=== PATIENT | female | born 1995 | race Caucasian/White ===

== ENCOUNTER 2023-03-05 07:03 | Emergency (ER) | payer OTHER ==
--- OUTSIDE RECORDS SUMMARY | 2023-03-05 07:06 | XMS REPORT | Continuity of Care Document ---
:1995 Author Organization [facility] t Address [address] [place] [address] Care Team Providers Name Role Phone GC_SWHAARLYNC_Black_D Attending Clinician Unavailable Olivia Morse Attending Clinician Unavailable Ely Chappell Attending Clinician Unavailable OLI_PRANAV_Black_Melody Attending Clinician Unavailable Thelma Bethea MD Attending Clinician THELMA BETHEA Attending Clinician Unavailable Roman Montesinos MD Attending Clinician Doctor Unassigned, [place] Attending Clinician Unavailable OLI_SWHAARLYNC_Black_D Admitting Clinician Unavailable Ely Chappell Admitting Clinician Unavailable GC_PRANAV_Black_D Admitting Clinician Unavailable Payers Payer Name Policy Type Policy Number Effective Date Expiration Date Radha pineda AET[employer] - CHOICE [id number] 2019 (POS II) 00:00:00 AETNA 53 [id number] [facility] Problems Condition Condition Condition Status Onset Resolution Last Treating Co mments Source Name Details Category Date Date Treatment Clinician Date Contracept Contracept Disease Active U nivers cody c[place] 7- [place] Anxiety Anxiety Disease Active Univers and [place] 10-09 [place] Encounter Encounter Disease Active Uni vers for IUD for IUD 10-09 ity of removal removal 00:00: [address] [id number] Vaginal Problem Active Commo n discharge [facility] [id number] RUQ pain Problem Active Comm on [facility] Hypothyroi Hypothyroi Problem Active P rivia dism dism Medical Allergies, Adverse Reactions, Alerts Allergy Allergy Status Severity Reaction(s) Onset Inactive Treating Comm ents Source Name Type Date Date Clinician No Known DA Active U 2022-04 [facility] Allergie 0-17 [facility] s 00:[facility]: Hosp[facility] 00 l [facility] No Known DA Active U 2022-04 [facility] Allergie 0-08 Woman's s 00:00: Hospita 00 [facility] NO KNOWN Drug Active Univers ALLERGIE Class ity of S [facility] Social History Social Habit Start Date Stop Date Quantity Comments Source History of [facility] - Tobacco Use [facility] Sex Assigned At [facility] karine - [facility] Exposure to Not sure [facility] SARS-CoV-2 [facility] (event) Branch Alcohol intake 2019-01-20 2019-01-20 Current University of 00:00:00 00:00:00 non-drinker of [facility] alcohol [place] (finding) Tobacco use and 2019-01-20 2019-01-20 Never used Universit y of exposure 00:00:00 00:00:00 [facility] Smoking Status Start Date Stop Date Source Never Smoker [facility] Medications Ordered Filled Start Stop Current Ordering Indication Dosage Frequency Signature Comments Components Source Medication Medication Date Date Medication? Clinician (SIG) Name Name ciprofloxac 2020- No [id number] 4[drp] Place 4 Univers in-dexameth 11-26 25605 Drops in it y of asone 00:00: 04:59 right ear [place] (CIPRODEX) 00 :00 2 (two) Medica l 0.3-0.1 % times Branch otic drops daily for 7 days. traMADol 50 2019- 2020- No 4647 50mg Take 1 Uni vers mg tablet 11-26 tablet by ity of 00:00: 04:59 mouth [place] 00 :00 every 6 Medical (six) Branch hours as needed for Pain (scale 4-6) for up to 7 days. Indication s: acute pain ketorolac 2019- No 30mg 30 mg, Unive rs (TORADOL) 06-02 Slow IV ity of injection 11:45: 10:47 Push, [place] 30 mg 00 :00 ONCE, 1 Medical dose, Fri Branch 06/02/19 at 0545, Routine
fast food crew member approving Restricted medication : ROMAN MONTESINOS metoclopram 2019- No 10mg 10 mg, Uni vers bennie HCl 06-02 Slow IV ity of (REGLAN) 11:45: 10:45 Push, [place] injection 00 :00 ONCE, 1 Medical 10 mg dose, Fri Branch 06/02/19 at 0545, MICHEL NaCl 0.9% 2019- No 1000mL at 999 Uni vers (NS) bolus 06-02 mL/hr, ity of infusion 10:45: 11:29 1,000 mL, [place] as 1,000 mL 00 :00 IV Medical Infusion, Branch ONCE, 1 dose, 06/02/19 at 0445, MICHEL ibuprofen Yes [id number] 600mg Take 1 Univers 600 mg 4-04 tablet by ity of tablet 00:00: mouth [place] 00 every 6 Medical (six) Branch hours as needed for Pain (scale 4-6). ibuprofen Yes [id number] 600mg Take 1 Univers 600 mg 4-04 tablet by ity of tablet 00:00: mouth [place] 00 every 6 Medical (six) Branch hours as needed for Pain (scale 4-6). ibuprofen Yes [id number] 600mg Take 1 Univers 600 mg 4-04 tablet by ity of tablet 00:00: mouth [place] 00 every 6 Medical (six) Branch hours as needed for Pain (scale 4-6). Flagyl 500 Flagyl 500 2017- No 1{table BID Flagyl 500 MG MG 7-09 t} MG 00:00: 00 norgestimat Yes [id number] 1{tbl} Take 1 Univers e-ethinyl 7-21 tablet by ity o f estradiol 00:00: mouth [place] (ORTHO 00 daily. Medical TRI-CYCLEN, Branch 28,) 0.18/0.215/ 0.25 mg-35 mcg (28) tablet norgestimat Yes [id number] 1{tbl} Take 1 Univers e-ethinyl 7-21 tablet by ity o f estradiol 00:00: mouth [place] (ORTHO 00 daily. [place] [address],) 0.18/0.215/ 0.25 mg-35 mcg (28) tablet norgestimat Yes [id number] 1{tbl} Take 1 Univers e-ethinyl 7-21 tablet by ity o f estradiol 00:00: mouth [place] (ORTHO 00 daily. [place] [address],) 0.18/0.215/ 0.25 mg-35 mcg (28) tablet norgestimat Yes [id number] 1{tbl} Take 1 Univers e-ethinyl 7-21 tablet by ity o f estradiol 00:00: mouth [place] (ORTHO 00 daily. [place] [address],) 0.18/0.215/ 0.25 mg-35 mcg (28) tablet norgestimat Yes [id number] 1{tbl} Take 1 Univers e-ethinyl 7-21 tablet by ity o f estradiol 00:00: mouth [place] (ORTHO 00 daily. [place] [address],) 0.18/0.215/ 0.25 mg-35 mcg (28) tablet norgestimat Yes [id number] 1{tbl} Take 1 Univers e-ethinyl 7-21 tablet by ity o f estradiol 00:00: mouth [place] (ORTHO 00 daily. [place] [address],) 0.18/0.215/ 0.25 mg-35 mcg (28) tablet levothyroxi levothyroxi No levothyrox [facility] ne 175 mcg ne 175 mcg ine 175 Medical tablet TAKE tablet TAKE mcg tablet 1 TABLET BY 1 TABLET BY TAKE 1 MOUTH DAILY MOUTH DAILY TABLET BY IN THE IN THE MOUTH MORNING ON MORNING ON DAILY IN AN EMPTY AN EMPTY THE STOMACH. STOMACH. MORNING ON WAIT 30 WAIT 30 AN EMPTY MINUTES MINUTES STOMACH. BEFORE BEFORE WAIT 30 EATING OR EATING OR MINUTES DRINKING DRINKING BEFORE EATING OR DRINKING ondansetron ondansetron No ondansetro [facility] 8 mg 8 mg n 8 mg Medical disintegrat disintegrat disintegra ing tablet ing tablet ting DISSOLVE 1 DISSOLVE 1 tablet TABLET ON TABLET ON DISSOLVE 1 THE TONGUE THE TONGUE TABLET ON THREE TIMES THREE TIMES THE TONGUE DAILY DAILY THREE NEEDED FOR NEEDED FOR TIMES NAUSEA NAUSEA DAILY NEEDED FOR NAUSEA Zofran 8 mg Zofran 8 mg No 1 Q8H Zofran 8 [facility] tablet Take tablet Take mg tablet Medical 1 tablet 1 tablet Take 1 every 8 every 8 tablet hours by hours by every 8 oral route oral route hours by as needed. as needed. oral route as needed. amoxicillin amoxicillin No amoxicilli [facility] 875 mg 875 mg n 875 mg Medical tablet TAKE tablet TAKE tablet 1 TABLET BY 1 TABLET BY TAKE 1 MOUTH TWICE MOUTH TWICE TABLET BY DAILY FOR DAILY FOR MOUTH 10 DAYS 10 DAYS TWICE DAILY FOR 10 DAYS benzonatate benzonatate No benzonatat [facility] 200 mg 200 mg e 200 mg Medical capsule capsule capsule TAKE 1 TAKE 1 TAKE 1 CAPSULE BY CAPSULE BY CAPSULE BY MOUTH THREE MOUTH THREE MOUTH TIMES DAILY TIMES DAILY THREE NEEDED NEEDED TIMES FOR COUGH FOR COUGH DAILY NEEDED FOR COUGH levothyroxi levothyroxi No levothyrox [facility] ne 175 mcg ne 175 mcg ine 175 Medical tablet TAKE tablet TAKE mcg tablet 1 TABLET BY 1 TABLET BY TAKE 1 MOUTH DAILY MOUTH DAILY TABLET BY IN THE IN THE MOUTH MORNING ON MORNING ON DAILY IN AN EMPTY AN EMPTY THE STOMACH. STOMACH. MORNING ON WAIT 30 WAIT 30 AN EMPTY MINUTES MINUTES STOMACH. BEFORE BEFORE WAIT 30 EATING OR EATING OR MINUTES DRINKING DRINKING BEFORE EATING OR DRINKING ondansetron ondansetron No ondansetro [facility] 8 mg 8 mg n 8 mg Medical disintegrat disintegrat disintegra ing tablet ing tablet ting DISSOLVE 1 DISSOLVE 1 tablet TABLET ON TABLET ON DISSOLVE 1 THE TONGUE THE TONGUE TABLET ON THREE TIMES THREE TIMES THE TONGUE DAILY DAILY THREE NEEDED FOR NEEDED FOR TIMES NAUSEA NAUSEA DAILY NEEDED FOR NAUSEA Zofran 8 mg Zofran 8 mg No 1 Q8H Zofran 8 [facility] tablet Take tablet Take mg tablet Medical 1 tablet 1 tablet Take 1 every 8 every 8 tablet hours by hours by every 8 oral route oral route hours by as needed. as needed. oral route as needed. Levothyroxi Levothyroxi No QD Levothyrox ne Sodium ne Sodium ine Sodium 175 MCG 175 MCG 175 MCG Mirena (52 Mirena (52 No Mirena (52 MG) 20 MG) 20 MG) 20 MCG/24HR MCG/24HR MCG/24HR Vital Signs Vital Name Observation Time Observation Value Comments Source BP Diastolic 2022-08-21 00:00:00 54 mm[Hg] Heena herzog BP Systolic 2022-08-21 00:00:00 102 mm[Hg] Heena herzog Body Weight 2022-08-21 00:00:00 222 [lb_av] Heena herzog BP Diastolic 2022-08-05 00:00:00 54 mm[Hg] Heena Barajas edical Height 2022-08-05 00:00:00 63 [in_i] Heena herzog BMI (Body Mass 2022-08-05 00:00:00 39.7 kg/m2 [facility] Index) BP Systolic 2022-08-05 00:00:00 106 mm[Hg] Heena herzog Body Weight 2022-08-05 00:00:00 224 [lb_av] Heena Barajas edical weight 2021-07-09 16:30:00 216.6 [lb_av] [facility] temperature 2021-07-09 16:30:00 98.6 [degF] Common [facility] bmi 2021-07-09 16:30:00 38.36 kg/m2 [facility] oximetry 2021-07-09 16:30:00 99 % [facility] respiratory rate 2021-07-09 16:30:00 16 /min Comm on [facility] blood pressure 2021-07-09 16:30:00 121 mm[Hg] Common [facility] - systolic [facility] blood pressure 2021-07-09 16:30:00 63 mm[Hg] Common [facility] - diastolic [facility] height 2021-07-09 16:30:00 63 [in_i] Common [facility] Systolic blood 2019-11-27 12:19:00 126 mm[Hg] Univer sity of pressure [facility] Diastolic blood 2019-11-27 12:19:00 72 mm[Hg] Unive rsity of pressure [facility] Heart rate 2019-11-27 12:19:00 94 /min Universi [facility] Body temperature 2019-11-27 12:19:00 37 Liss [facility] ersity [facility] Respiratory rate 2019-11-27 12:19:00 18 /min [facility] Body weight 2019-11-27 12:19:00 97.523 kg Universi ty [facility] BMI 2019-11-27 12:19:00 38.09 [facility]m2 [facility] Oxygen saturation in 2019-11-27 12:19:00 100 /min University of Arterial blood by [facility] Pulse oximetry Branch Systolic blood 2019-06-02 11:00:00 101 mm[Hg] Univer sity of pressure [facility] Diastolic blood 2019-06-02 11:00:00 70 mm[Hg] Unive rsity of [facility] Heart rate 2019-06-02 11:00:00 62 /min Universi ty [facility] Respiratory rate 2019-06-02 11:00:00 19 /min [facility] Oxygen saturation in 2019-06-02 11:00:00 97 /min [facility] Arterial blood by [facility] Pulse oximetry Branch Body temperature 2019-06-02 10:17:00 36.11 Liss [facility] Body height 2019-06-02 10:17:[address] [facility] Body weight 2019-06-02 10:17:00 94.348 kg [facility] BMI 2019-06-02 10:17:00 36.85 kg/m2 [facility] Procedures Procedure Date / Time Performing Clinician Source Performed [id number] 2023-02-02 00:00:00 [facility] [id number] 2023-02-02 00:00:00 [facility] [id number] 2023-02-02 00:00:00 [facility] ABDOMINAL ULTRASOUND OF 2022-08-21 00:00:00 [facility] UTERUS (LESS THAN 14 WEEKS 0 DAYS) SINGLE OR FIRST FETUS US, transvaginal 2022-08-05 00:00:00 [facility] NOTICE OF PRIVACY 2019-11-27 12:12:29 Doctor Unassigned, No Univ [facility] PRACTICES Name Medical Branch CONSENT/REFUSAL FOR 2019-11-27 12:12:10 Doctor Unassigned, No [facility] DIAGNOSIS AND TREATMENT [facility] POCT TEST 2019-06-02 10:35:[address] [facility] ASSIGNMENT OF BENEFITS 2019-06-02 10:10:09 Doctor Unassigned, No [facility] Dilation and Curettage 2013-04-19 00:00:00 Priv[facility] a Medical Remove Tonsils and [facility] l Adenoids Plan of Care Planned Activity Planned Date Details Comments Source Diagnostic Test 2022-08-21 HIV 1+2 AB + HIV 1 p24 Pr [facility] Medical Pending 00:00:00 Ag, qualitative immunoassay, serum [code = HIV 1+2 AB + HIV 1 p24 Ag, qualitative immunoassay, serum] Diagnostic Test 2022-08-21 Formate [Mass/volume] Katherine via Medical Pending 00:00:00 in Serum or Plasma [code = 2292-1] Diagnostic Test 2022-08-21 Malonate [Mass/volume] [facility] Medical Pending 00:00:00 in Serum [code = 2603-9] Diagnostic Test 2022-08-21 CT + NG RNA, urine [facility] Pending 00:00:00 [code = CT + NG RNA, urine] Diagnostic Test 2022-08-21 TSH, serum or plasma [facility] Pending 00:00:00 [code = TSH, serum or plasma] Diagnostic Test 2022-08-21 genetic disease [facility] Me dical Pending 00:00:00 analysis, blood or tissue [code = genetic disease analysis, blood or tissue] Encounters Start End Encounter Admission Attending Care Care Encounter Source Date/Time Date/Time Type Type Clinicians Facility Department ID 2021-07-09 Outpatient STLMLC STLMLC [id number] Common 16:01:02 [facility] 2023-02-23 2023-02-23 Outpatient GC_SWHAOMC_ PRIV PRIV [id number] [facility] 00:00:00 00:00:00 Josué [id number] Medica l 2023-02-23 2023-02-23 Outpatient GC_SWHAOMC_ PRIV PRIV [id number] [facility] 00:00:00 00:00:00 Josué [id number] Medica l 2023-02-12 2023-02-12 Outpatient GC_SWHAOMC_ PRIV PRIV [id number] [facility] 00:00:00 00:00:00 Black_D [id number] Medica l 2023-02-12 2023-02-12 Outpatient GC_SWHAOMC_ PRIV PRIV [id number] [facility] 00:00:00 00:00:00 Black_D [id number] Medica l 2023-02-05 2023-02-05 Emergency EM Mini [facility] [id number] [facility] 19:15:00 23:00:00 Olivia 12 [facility] [place] 2023-02-01 2023-02-05 Inpatient EM Ely Chappell [facility] F000 [id number] [facility] 16:09:00 17:28:00 16 [facility] 2023-01-24 2023-01-24 Emergency EM Ely Chappell [facility] F000 [id number] [facility] 13:25:00 16:49:00 13 [facility] [place] 2023-01-18 2023-01-18 Outpatient GC_SWHAOMC_ PRIV PRIV [id number] [facility] 00:00:00 00:00:00 Black_D [id number] Medica l 2023-01-18 2023-01-18 Outpatient GC_SWHAOMC_ PRIV PRIV [id number] [facility] 00:00:00 00:00:00 Black_D [id number] Medica l 2023-01-18 2023-01-18 Outpatient GC_SWHAOMC_ PRIV PRIV 271 [id number] [facility] 00:00:00 00:00:00 Black_D [id number] Medica l 2022-12-28 2022-12-28 Outpatient GC_SWHAOMC_ PRIV PRIV [id number] [facility] 00:00:00 00:00:00 Black_D [id number] Medica l 2022-12-28 2022-12-28 Outpatient GC_SWHAOMC_ PRIV PRIV 271 [id number] [facility] 00:00:00 00:00:00 Black_D [id number] Medica l 2022-12-28 2022-12-28 Outpatient GC_SWHAOMC_ PRIV PRIV 271 [id number] [facility] 00:00:00 00:00:00 Black_D [id number] Medica l 2022-11-20 2022-11-20 Outpatient GC_SWHAOMC_ PRIV PRIV [id number] [facility] 00:00:00 00:00:00 Black_D [id number] Medica l 2022-11-20 2022-11-20 Outpatient GC_SWHAOMC_ PRIV PRIV 271 [id number] [facility] 00:00:00 00:00:00 Black_D [id number] Medica l 2022-11-20 2022-11-20 Outpatient GC_SWHAOMC_ PRIV PRIV 271 [id number] [facility] 00:00:00 00:00:00 Black_D [id number] Medica l 2022-11-20 2022-11-20 Outpatient GC_SWHAOMC_ PRIV PRIV [id number] [facility] 00:00:00 00:00:00 Black_D [id number] Medica l 2022-11-20 2022-11-20 Outpatient GC_SWHAOMC_ PRIV PRIV 271 [id number] [facility] 00:00:00 00:00:00 Black_D [id number] Medica l 2022-11-20 2022-11-20 Outpatient GC_SWHAOMC_ PRIV PRIV 271 [id number] [facility] 00:00:00 00:00:00 Black_D [id number] Medica l 2022-10-30 2022-10-30 Outpatient GC_SWHAOMC_ PRIV PRIV 271 [id number] [facility] 00:00:00 00:00:00 Black_D [id number] Medica l 2022-10-30 2022-10-30 Outpatient GC_SWHAOMC_ PRIV PRIV 271 [id number] [facility] 00:00:00 00:00:00 Black_D [id number] Medica l 2022-10-30 2022-10-30 Outpatient GC_SWHAOMC_ PRIV PRIV 271 [id number] [facility] 00:00:00 00:00:00 Black_D [id number] Medica l 2022-10-25 2022-10-25 Outpatient GC_SWHATBIC PRIV PRIV 271 [id number] [facility] 00:00:00 00:00:00 _Black_D [id number] Medic al 2022-10-25 2022-10-25 Outpatient GC_SWHATBIC PRIV PRIV [id number] [facility] 00:00:00 00:00:00 _Black_D [id number] Medic al 2022-10-13 2022-10-13 Outpatient GC_SWHAOMC_ PRIV PRIV 271 [id number] [facility] 00:00:00 00:00:00 Black_D [id number] Medica l 2022-10-01 2022-10-01 Outpatient GC_SWHATBIC PRIV PRIV 271 [id number] [facility] 00:00:00 00:00:00 _Black_D [id number] Medic al 2022-09-30 2022-09-30 Outpatient GC_SWHAOMC_ PRIV PRIV 271 [id number] [facility] 00:00:00 00:00:00 Black_D [id number] Medica l 2022-09-28 2022-09-28 Outpatient GC_SWHAOMC_ PRIV PRIV 271 [id number] [facility] 00:00:00 00:00:00 Black_D [id number] Medica l 2022-08-21 2022-08-21 Outpatient GC_SWHAOMC_ PRIV PRIV 271 [id number] [facility] 00:00:00 00:00:00 Black_D [id number] Medica l 2022-08-21 2022-08-21 Outpatient GC_SWHAOMC_ PRIV PRIV 271 [id number] [facility] 00:00:00 00:00:00 Black_D [id number] Medica l 2022-08-21 2022-08-21 Ely [facility]IV [facility] 05 [facility] 00:00:00 00:00:[address] [facility] Medic em Chappell MD: GC_SWHAOMC_ [address] [facility], [address], [place] [address] , Ph. 2022-08-20 2022-08-20 Outpatient GC_SWHAOMC_ PRIV PRIV 271 [id number] [facility] 00:00:00 00:00:00 Black_D [id number] Medica l 2022-08-05 2022-08-05 Outpatient GC_SWHAOMC_ PRIV PRIV 271 [id number] [facility] 00:00:00 00:00:00 Black_D [id number] Medica l 2022-08-05 2022-08-05 Outpatient GC_SWHAOMC_ PRIV PRIV [id number] [facility] 00:00:00 00:00:00 Black_D [id number] Medica l 2022-08-05 2022-08-05 Ely [facility]IV [facility] 19 [facility] 00:00:00 00:00:00 [facility] em Chappell MD: GC_SWHAOMC_ [address], [address], [place] [address] , Ph. 2022-07-07 2022-07-07 Outpatient GC_SWHAOMC_ PRIV PRIV [id number] [facility] 00:00:00 00:00:00 Black_D [id number] Medica l 2022-07-07 2022-07-07 Outpatient GC_SWHAOMC_ PRIV PRIV 271 [id number] [facility] 00:00:00 00:00:00 Black_D [id number] Medica l 2021-07-09 2021-07-09 OFFICE STLMLC STLMLC [id number] Co mmon 00:00:00 00:00:00 VISIT [facility] PT LEVEL 2 - [facility] 2019-11-27 2019-11-27 Emergency [facility] [id number] Univers 07:22:00 07:48:00 Thelma Ortiz [id number] i ty [facility] [id number] [facility] [id number] [place] [id number] Branch 2019-11-27 2019-11-27 Emergency [facility] [id number] Univers 07:13:00 07:13:00 THELMA shahid [facility] 2019-06-02 2019-06-02 Emergency [facility] [id number] Univers 04:11:55 05:28:00 Roman Ortiz [id number] i ty of [place] 4.2.7.2.686 [place] [id number] [facility] 084 Branch 2019-06-02 2019-06-02 Orders Doctor MICHAELLE [id number] Univers 00:00:00 00:00:00 Only Unassigned, ANDRE [id number] ity [address] [place] [facility] [id number] Melvin as [phone] [facility] 009 [place] Results Test Description Test Time Test Comments Results Result Comments Source SURGICAL 2023-02-12 16:47:00 Test Item Value Reference Range Interpretation Comme nts SURGICAL RUN DATE: (test 02/12/23 Woman's - Laborato ry PAGE 1 RUN TIME: 1648 Specimen Inquiry RUN USER: INTERFACE code = PATIENT: ANNE MARIE SANTOS ACCT #: [id number] LOC: MireyaPPUW U #: [id number] AGE/SX: 27/F ROOM: [facility] RE02/01/23REG DR: Ely Chappell MD : 94 BED: A DIS: 02/05/23 STATUS: DIS IN TLOC: SPEC #: [id number] RECD: STATUS: ADOLPH GU #: [id number] JEFRY: 02/02/232135 [facility] DR: Ely Chappell MD ENTERED: 02/03/23 SP TYPE: SURGICAL OTHR DR: No Primary or Family Physician Lora Jaimes MDORDERED: ANATOMIC SPEC, SP EC TRACK, [id number] COPIES TO: No Primary or Family Physician Ely Chappell MD [address] [facility] [address] [place] [address] Lora Jaimes MD [address] [facility] [address] [place] [address] PROCEDURES: [id number] (02/03/23) TISSUES: A. PLACENTA, THIRD TRIMESTER (28 + WEEKS) FINAL DIAGNOSIS PLACENTA :- Mature villous morphology, 449 grams, (50th percentile for estimated gestational age). - Peripheral infarcts x3, 0.3 cm each, less than 1% of total placental volume.- Umbilical cord with 4 coils (hypercoiled) per 10 cm.- Three vessel umbilical cord with no histologic abnormalities. - membranes with no significant diagnostic abnormalities. GROSS DESCRIPTION Received in form tonya is a boss placenta with the placental disc measuring 16.5 x 13.5x 2 cm and weighing 449 gm wit h a 42 cm in diameter by 1.2 cm in length eccentricallyplaced three vessel cord with excess spiraling ( four coils per 10 cm). The membranes aretan and translucent with marginal insertion with the site of r upture 1.5 cm from theplacental disc. The placental disc has a cano-red cut surface with three minute 0. 3 cmlesions, less than 1% of total placental volume. Bottom Polisher sections are submitted asfollows: A1: Membrane roll and cordA2: Full thickness placental discA3: Maternal and surfaces CONTINUED ON NEXT PAGE RUN DATE: 02/12/23 Lemuel carvalho PAGE 2 RUN TIME: 1648 Specimen Inquiry RUN USER: INTERFACE SPEC #: [id number] PATIENT: ANNE MARIE MATTHEWS #[id number] (Continued) GROSS DESCRIPTION (Continued ) IUV; 02/04/23 Technical component performed at [facility], [place] [address] Immunohistochemical stains and Special Stains are [facility], [address] [place] [address], [address], [place] [address] Unless gross only, the diagnosis is based upon microscopic examination. Immunohistochemistry: This test was developed and its performance characte risticsdetermined by this laboratory. It has not been approved nor does it need approval by Clem FDA. Appropriate positive and negative controls are reviewed and judged to beacceptable. This laborator y is certified under the Clinical Laboratory ImprovementAmendments (CLIA-88) as qualified to perform high complexity clinical laboratory testing. CLINICAL INFORMATION 02/02/23, , 34.2 WEEKS, PRE-E, PTL. Signed SIGNATURE ON Susan Zeng 02/12/23 1647 END OF REPORT COMPREHENSIVE METABOLIC [id number] 21:25:00 Test Item Value Reference Range Interpretation Comments SODIUM (test code = 142 mEq/L 135-145 N NA) POTASSIUM (test code 3.3 mEq/L 3.5-5.0 L = K) CHLORIDE (test code 108 mEq/L 100-115 N = CL) CARBON DIOXIDE (test 24 mEq/L 22-31 N code = CO2) ANION GAP (test code 13.50 10-20 N = GAP) GLUCOSE (test code = 79 mg/dL 65-110 N GLU) BLOOD UREA NITROGEN 9 mg/dL 7-18 N (test code = BUN) CREATININE (test 0.8 mg/dL 0.5-1.0 N code = CREAT) TOTAL PROTEIN (test 6.3 gm/dL 6.3-8.2 N code = PROT) ALBUMIN (test code = 2.9 gm/dL 3.4-4.8 L ALB) CALCIUM (test code = 7.9 mg/dL 8.4-10.2 L CA) BILIRUBIN TOTAL 0.4 mg/dL 0.2-1.0 N (test code = BILT) SGOT/AST (test code 42 units/L 15-37 H = AST) SGPT/ALT (test code 28 units/L 12-78 = ALT) ALKALINE PHOSPHATASE 119 units/L 46-116 H TOTAL (test code = ALKP) GLOMERULAR 103 ml/min >60 N The Glomerular FILTRATION RATE Filtration R ate is a (test code = GFR) calculated parameterbased on serum Creatinin e, patient age and sex. GFR valuesless than 60 mL/min/1.73 squ are meters are dev cative ofChronic Kidne y Disease. Values less than 15 mL/min/1.73squa re meters indicate Kidney failure. The calculation for GFR is based on the CK D-EPI (2020) calculat ion. This formulais race indifferent and is the recommended for sera for GFRby the [facility] Kid[facility] Found[facility] on for Adults.The GFR will not calculate i f the sex is unknown or if thepatient's ag e is <18 years. UA RFLX MICR CULT IF [id number] 21:08:00 Test Item Value Reference Range Interpretation Comments UA COLOR (test code = YELLOW YELLOW COLU) UA APPEARANCE (test code CLEAR CLEAR = APPU) UA GLUCOSE DIPSTICK (test NEGATIVE NEG code = DGLUU) UA BILIRUBIN DIPSTICK NEGATIVE NEG (test code = BILU) UA KETONE DIPSTICK (test TRACE NEG A code = KETU) UA SPECIFIC GRAVITY (test 1.009 1.001-1.035 N code = SGU) UA BLOOD DIPSTICK (test 2+ NEG A code = DAPHNEY) UA PH DIPSTICK (test code 8.0 5-9 = KATELIN) UA PROTEIN DIPSTICK (test NEGATIVE NEG code = PROU) UA UROBILINIOGEN DIPSTICK NEGATIVE mg/dL NEG (test code = URO) UA NITRITE DIPSTICK (test NEG NEG code = EMMANUEL) UA LEUKOCYTE ESTERASE TRACE NEG A DIPSTICK (test code = LEUU) UA WBC (test code = WBCU) 6-10 #/hpf NONE SEEN A UA RBC (test code = RBCU) TOO NUMEROUS TO CNT NONE SEEN A #/hpf UA EPITHELIAL CELLS (test RARE #/HPF RARE-FEW code = EPIU) Indication for culture: Dysuria/FrequencySpecimen Description: CLEAN CATCHCBC W/AUTO [id number] 21:05:00 Test Item Value Reference Range Interpretation Comments WHITE BLOOD CELL (test 7.5 K/mm3 6.5-12.3 Resul ts verified by code = WBC) repeat analysis RED BLOOD CELL (test 2.98 M/mm3 3.51-4.69 L code = RBC) HEMOGLOBIN (test code = 9.6 g/dL 10.1-13.8 L HGB) HEMATOCRIT (test code = 28.8 % 32.5-41.8 L HCT) MEAN CELL VOLUME (test 96.6 fL 84.6-96.6 N code = MCV) MEAN CELL HGB (test code 32.2 pg 27.3-33.9 N = MCH) MEAN CELL HGB 33.3 gm/dL 32.0-34.2 N CONCETRATION (test code = MCHC) RED CELL DISTRIBUTION 15.7 % 12.2-16.3 N WIDTH (test code = RDW) PLATELET COUNT (test 155 K/mm3 134-363 N code = PLT) MEAN PLATELET VOLUME 9.8 fL 9.2-12.7 N (test code = MPV) NEUTROPHIL % (test code 69.2 % 57.9-77.3 N = NT%) LYMPHOCYTE % (test code 22.9 % 14.5-29.7 N = LY%) MONOCYTE % (test code = 6.4 % 3.6-10.2 N MO%) EOSINOPHIL % (test code 0.0 % 0.0-3.0 N = EO%) BASOPHIL % (test code = 0.4 % 0.1-0.9 N BA%) NEUTROPHIL # (test code 5.2 K/mm3 = NT#) LYMPHOCYTE # (test code 1.7 K/mm3 = LY#) MONOCYTE # (test code = 0.5 K/mm3 MO#) EOSINOPHIL # (test code 0 K/mm3 = EO#) BASOPHIL # (test code = 0.0 K/mm3 BA#) RBC MORPHOLOGY REQUIRED NORMAL NORMAL (test code = RBCM) PLATELET MORPHOLOGY NORMAL NORMAL REQUIRED (test code = PLTMR) COMPREHENSIVE METABOLIC [id number] 06:11:00 Test Item Value Reference Range Interpretation Comments SODIUM (test code = 137 mEq/L 135-145 N NA) POTASSIUM (test code 3.6 mEq/L 3.5-5.0 N = K) CHLORIDE (test code 105 mEq/L 100-115 N = CL) CARBON DIOXIDE (test 21 mEq/L 22-31 L code = CO2) ANION GAP (test code 14.20 10-20 N = GAP) GLUCOSE (test code = 119 mg/dL 65-110 H GLU) BLOOD UREA NITROGEN 7 mg/dL 7-18 N (test code = BUN) CREATININE (test 1.0 mg/dL 0.5-1.0 N code = CREAT) TOTAL PROTEIN (test 6.3 gm/dL 6.3-8.2 N code = PROT) ALBUMIN (test code = 2.6 gm/dL 3.4-4.8 L ALB) CALCIUM (test code = 7.3 mg/dL 8.4-10.2 L CA) BILIRUBIN TOTAL 0.3 mg/dL 0.2-1.0 N (test code = BILT) SGOT/AST (test code 21 units/L 15-37 N = AST) SGPT/ALT (test code 13 units/L 12-78 N = ALT) ALKALINE PHOSPHATASE 161 units/L 46-116 H TOTAL (test code = ALKP) GLOMERULAR 79 ml/min >60 N The Glomerular FILTRATION RATE Filtration R ate is a (test code = GFR) calculated parameterbased on serum Creatinin e, patient age and sex. GFR valuesless than 60 mL/min/1.73 squ are meters are dev cative ofChronic Kidne y Disease. Values less than 15 mL/min/1.73squa re meters indicate Kidney failure. The calculation for GFR is based on the CK D-EPI (2020) calculat ion. This formulais race indifferent and is the recommended for sera for GFRby the [facility] on for Adults.The GFR will not calculate i f the sex is unknown or if thepatient's ag e is <18 years. HEMOLYSIS \NOTIFIED JEANNE VARGHESE RN2ND BLOOD DRAW WAS HEMOLYZED \NOTIFIED JEANNEHALIMA RNCBC W/AUTO [id number] 06:06:00 Test Item Value Reference Range Interpretation Comments WHITE BLOOD CELL (test 16.6 K/mm3 6.5-12.3 H Resul ts verified by code = WBC) repeat analysis RED BLOOD CELL (test 3.44 M/mm3 3.51-4.69 L code = RBC) HEMOGLOBIN (test code = 11.2 g/dL 10.1-13.8 N HGB) HEMATOCRIT (test code = 32.4 % 32.5-41.8 L HCT) MEAN CELL VOLUME (test 94.2 fL 84.6-96.6 N code = MCV) MEAN CELL HGB (test code 32.6 pg 27.3-33.9 N = MCH) MEAN CELL HGB 34.6 gm/dL 32.0-34.2 H CONCETRATION (test code = MCHC) RED CELL DISTRIBUTION 15.5 % 12.2-16.3 N WIDTH (test code = RDW) PLATELET COUNT (test 142 K/mm3 134-363 N code = PLT) MEAN PLATELET VOLUME 10.1 fL 9.2-12.7 N (test code = MPV) NEUTROPHIL % (test code 80.9 % 57.9-77.3 H = NT%) LYMPHOCYTE % (test code 10.6 % 14.5-29.7 L = LY%) MONOCYTE % (test code = 7.4 % 3.6-10.2 N MO%) EOSINOPHIL % (test code 0.0 % 0.0-3.0 N = EO%) BASOPHIL % (test code = 0.1 % 0.1-0.9 N BA%) NEUTROPHIL # (test code 13.4 K/mm3 = NT#) LYMPHOCYTE # (test code 1.8 K/mm3 = LY#) MONOCYTE # (test code = 1.2 K/mm3 MO#) EOSINOPHIL # (test code 0 K/mm3 = EO#) BASOPHIL # (test code = 0.0 K/mm3 BA#) RBC MORPHOLOGY REQUIRED NORMAL NORMAL (test code = RBCM) PLATELET MORPHOLOGY NORMAL NORMAL REQUIRED (test code = PLTMR) CBC W/AUTO [id number] 16:06:00 Test Item Value Reference Range Interpretation Comments WHITE BLOOD CELL (test code = WBC) 7.3 K/mm3 6.5-12.3 N RED BLOOD CELL (test code = RBC) 3.66 M/mm3 3.51-4.69 N HEMOGLOBIN (test code = HGB) 11.8 g/dL 10.1-13.8 N HEMATOCRIT (test code = HCT) 34.8 % 32.5-41.8 N MEAN CELL VOLUME (test code = MCV) 95.1 fL 84.6-96.6 N MEAN CELL HGB (test code = MCH) 32.2 pg 27.3-33.9 N MEAN CELL HGB CONCETRATION (test 33.9 gm/dL 32.0-34.2 N code = MCHC) RED CELL DISTRIBUTION WIDTH (test 15.7 % 12.2-16.3 N code = RDW) PLATELET COUNT (test code = PLT) 141 K/mm3 134-363 N MEAN PLATELET VOLUME (test code = 10.6 fL 9.2-12.7 N MPV) NEUTROPHIL % (test code = NT%) 82.2 % 57.9-77.3 H LYMPHOCYTE % (test code = LY%) 13.6 % 14.5-29.7 L MONOCYTE % (test code = MO%) 2.3 % 3.6-10.2 L EOSINOPHIL % (test code = EO%) 0.1 % 0.0-3.0 N BASOPHIL % (test code = BA%) 0.3 % 0.1-0.9 N NEUTROPHIL # (test code = NT#) 6.0 K/mm3 LYMPHOCYTE # (test code = LY#) 1.0 K/mm3 MONOCYTE # (test code = MO#) 0.2 K/mm3 EOSINOPHIL # (test code = EO#) 0.01 K/mm3 BASOPHIL # (test code = BA#) 0.0 K/mm3 RBC MORPHOLOGY REQUIRED (test code NORMAL NORMAL = RBCM) PLATELET MORPHOLOGY REQUIRED (test NORMAL NORMAL code = PLTMR) AG HEPATITIS B [id number] 02:27:00 Test Item Value Reference Range Interpretation Comments AG HEPATITIS B SURFACE (test code NONREACTIVE NONREACTIVE = HBSAG) AB HEPATITIS C [id number] 02:27:00 Test Item Value Reference Range Interpretation Comments AB HEPATITIS C (test code = NONREACTIVE NONREACTIVE HCVAB) SIGNAL TO CUTOFF (test code = 0.11 <0.80 N CUTOFF) AB [id number] 02:27:00 Test Item Value Reference Range Interpretation Comments AB TREPONEMA (test code = TREPAB) NONREACTIVE NONREACTIVE AB HIV 1 02:27:00 Test Item Value Reference Range Interpretation Comments AB HIV 1 2 (test NONREACTIVE NONREACTIVE Done by [facility] code = [id number]) 4th Gen HIV Ag/Ab Combo Screen CBC W/AUTO [id number] 01:08:00 Test Item Value Reference Range Interpretation Comments WHITE BLOOD CELL (test code = WBC) 9.6 K/mm3 6.5-12.3 N RED BLOOD CELL (test code = RBC) 3.49 M/mm3 3.51-4.69 L HEMOGLOBIN (test code = HGB) 11.3 g/dL 10.1-13.8 N HEMATOCRIT (test code = HCT) 32.8 % 32.5-41.8 N MEAN CELL VOLUME (test code = MCV) 94.0 fL 84.6-96.6 N MEAN CELL HGB (test code = MCH) 32.4 pg 27.3-33.9 N MEAN CELL HGB CONCETRATION (test 34.5 gm/dL 32.0-34.2 H code = MCHC) RED CELL DISTRIBUTION WIDTH (test 15.4 % 12.2-16.3 N code = RDW) PLATELET COUNT (test code = PLT) 147 K/mm3 134-363 N MEAN PLATELET VOLUME (test code = 10.0 fL 9.2-12.7 N MPV) NEUTROPHIL % (test code = NT%) 74.4 % 57.9-77.3 N LYMPHOCYTE % (test code = LY%) 19.5 % 14.5-29.7 N MONOCYTE % (test code = MO%) 4.9 % 3.6-10.2 N EOSINOPHIL % (test code = EO%) 0.4 % 0.0-3.0 N BASOPHIL % (test code = BA%) 0.3 % 0.1-0.9 N NEUTROPHIL # (test code = NT#) 7.2 K/mm3 LYMPHOCYTE # (test code = LY#) 1.9 K/mm3 MONOCYTE # (test code = MO#) 0.5 K/mm3 EOSINOPHIL # (test code = EO#) 0.04 K/mm3 BASOPHIL # (test code = BA#) 0.0 K/mm3 RBC MORPHOLOGY REQUIRED (test code NORMAL NORMAL = RBCM) PLATELET MORPHOLOGY REQUIRED (test NORMAL NORMAL code = PLTMR) UR PROTEIN/CREATININE [id number] 16:06:00 Test Item Value Reference Range Interpretation Comments UR PROTEIN RANDOM 36.9 mg/dL No referen ce range (test code = PROTU) availabl e UR CREATININE RANDOM 64.2 mg/dL No refe rence range (test code = CREATU) availab le PROTEIN/CREATININE 574.7 mg/gcrea <200 H RATIO (test code = P/CRATIO) COMPREHENSIVE METABOLIC [id number] 15:28:00 Test Item Value Reference Range Interpretation Comments SODIUM (test code = 141 mEq/L 135-145 N NA) POTASSIUM (test code 3.7 mEq/L 3.5-5.0 N = K) CHLORIDE (test code 105 mEq/L 100-115 N = CL) CARBON DIOXIDE (test 23 mEq/L 22-31 N code = CO2) ANION GAP (test code 16.30 10-20 N = GAP) GLUCOSE (test code = 67 mg/dL 65-110 N GLU) BLOOD UREA NITROGEN 9 mg/dL 7-18 N (test code = BUN) CREATININE (test 0.9 mg/dL 0.5-1.0 N code = CREAT) TOTAL PROTEIN (test 6.4 gm/dL 6.3-8.2 N code = PROT) ALBUMIN (test code = 3.0 gm/dL 3.4-4.8 L ALB) CALCIUM (test code = 8.7 mg/dL 8.4-10.2 N CA) BILIRUBIN TOTAL 0.5 mg/dL 0.2-1.0 N (test code = BILT) SGOT/AST (test code 21 units/L 15-37 N = AST) SGPT/ALT (test code 15 units/L 12-78 N = ALT) ALKALINE PHOSPHATASE 168 units/L 46-116 H TOTAL (test code = ALKP) GLOMERULAR 89 ml/min >60 N The Glomerular FILTRATION RATE Filtration R ate is a (test code = GFR) calculated parameterbased on serum Creatinin e, patient age and sex. GFR valuesless than 60 mL/min/1.73 squ are meters are dev cative ofChronic Kidne y Disease. Values less than 15 mL/min/1.73squa re meters indicate Kidney failure. The calculation for GFR is based on the CK D-EPI (2020) calculat ion. This formulais race indifferent and is the recommended for sera for GFRby the [facility] for Adults.The GFR will not calculate i f the sex is unknown or if thepatient's ag e is <18 years. URIC [id number] 15:28:00 Test Item Value Reference Range Interpretation Comments URIC ACID (test code = URIC) 6.7 mg/dL 2.6-6.0 H LACTIC DEHYDROGENASE(LDH)2023-02-01 15:28:00 Test Item Value Reference Range Interpretation Comments LACTIC DEHYDROGENASE(LDH) (test 257 units/L 81-234 H code = LDH) - US FET BIO PH MA W/O [id number] 14:43:00 [facility] : 1995 Sex: FPatient Name: ANNE MARIE MATTHEWS Unit No: [id number] EXAMS: CPT CODE: [id number] US FET BIO PH MA W/O NST 86448 BIOPHYSICAL PROFILE Clinical history: 34w GA: 34 weeks 0 days MARTHA: 03/15/2023 Boss presentation: Cephalic heart rate:131 bpm Placental : Anterior grade 2 no previa with no evidence of placenta previa imaged. CHRIS: 11.01 cm Cervix: [3.1;x] BPP Breathin Somatic motion: 2 Tone: 2 AFV (2x1cm) 2 BBP Score: 8/8 Umbilical artery Doppler:not ordered IMPRESSION: BPP 8/8 at 1443 Reported and signed by: MD Ale CC: Ely Chappell MD; Jose Baig MD Technologist: Yun Pierre RDMS Probe: Trnscrbd D/ (1443) t.SDR.CER Orig Print D/T: S: 02/01/2023 (1446) [facility] NAME: ANNE MARIE MATTHEWS Radiology Department PHYS: Jose Ortiz [address] : 1995 AGE: 27 SEX: F [place], [place] [address] LOC: F.WHITNEY PHONE #: [phone] EXAM DATE: 02/01/2023 STATUS: REG ER FAX #: [phone] RAD NO: Page 1 Signed Report Patient Name: ANNE MARIE MATTHEWS Unit No: [id number] EXAMS: CPT CODE: [id number] US FET BIO PH MA W/O NST 24506 (Continued) [facility] NAME: ANNE MARIE MATTHEWS Radiology Department PHYS: Jose Ortiz [address] : 1995 AGE: 27 SEX: F [place], [place] [address] LOC: F.WHITNEY PHONE #: [phone] EXAM DATE: 02/01/2023 STATUS: REG ER FAX #: [phone] RAD NO: Page 2 Signed ReportURINALYSIS COMPLETE 2023-02-01 14:40:00 Test Item Value Reference Range Interpretation Comments UA COLOR (test code = COLU) YELLOW YELLOW UA APPEARANCE (test code = Slightly-Cloudy CLEAR APPU) UA GLUCOSE DIPSTICK (test NEGATIVE NEG code = DGLUU) UA BILIRUBIN DIPSTICK (test NEGATIVE NEG code = BILU) UA KETONE DIPSTICK (test code NEGATIVE NEG = KETU) UA SPECIFIC GRAVITY (test 1.006 1.001-1.035 N code = SGU) UA BLOOD DIPSTICK (test code NEG NEG = DAPHNEY) UA PH DIPSTICK (test code = 7.0 5-9 KATELIN) UA PROTEIN DIPSTICK (test 1+ NEG A code = PROU) UA UROBILINIOGEN DIPSTICK NEGATIVE mg/dL NEG (test code = URO) UA NITRITE DIPSTICK (test NEG NEG code = EMMANUEL) UA LEUKOCYTE ESTERASE 2+ NEG A DIPSTICK (test code = LEUU) UA WBC (test code = WBCU) 3-5 #/hpf NONE SEEN A UA RBC (test code = RBCU) 0-2 #/hpf NONE SEEN UA EPITHELIAL CELLS (test MODERATE #/HPF RARE-FEW A code = EPIU) URINE SAMPLE: CLEAN CATCHCBC W/AUTO [id number] 14:31:00 Test Item Value Reference Range Interpretation Comments WHITE BLOOD CELL (test code = WBC) 7.4 K/mm3 6.5-12.3 N RED BLOOD CELL (test code = RBC) 3.63 M/mm3 3.51-4.69 N HEMOGLOBIN (test code = HGB) 11.7 g/dL 10.1-13.8 N HEMATOCRIT (test code = HCT) 34.5 % 32.5-41.8 N MEAN CELL VOLUME (test code = MCV) 95.0 fL 84.6-96.6 N MEAN CELL HGB (test code = MCH) 32.2 pg 27.3-33.9 N MEAN CELL HGB CONCETRATION (test 33.9 gm/dL 32.0-34.2 N code = MCHC) RED CELL DISTRIBUTION WIDTH (test 15.3 % 12.2-16.3 N code = RDW) PLATELET COUNT (test code = PLT) 136 K/mm3 134-363 N MEAN PLATELET VOLUME (test code = 10.0 fL 9.2-12.7 N MPV) NEUTROPHIL % (test code = NT%) 60.4 % 57.9-77.3 N LYMPHOCYTE % (test code = LY%) 31.6 % 14.5-29.7 H MONOCYTE % (test code = MO%) 6.9 % 3.6-10.2 N EOSINOPHIL % (test code = EO%) 0.0 % 0.0-3.0 N BASOPHIL % (test code = BA%) 0.3 % 0.1-0.9 N NEUTROPHIL # (test code = NT#) 4.5 K/mm3 LYMPHOCYTE # (test code = LY#) 2.3 K/mm3 MONOCYTE # (test code = MO#) 0.5 K/mm3 EOSINOPHIL # (test code = EO#) 0 K/mm3 BASOPHIL # (test code = BA#) 0.0 K/mm3 RBC MORPHOLOGY REQUIRED (test code NORMAL NORMAL = RBCM) PLATELET MORPHOLOGY REQUIRED (test NORMAL NORMAL code = PLTMR) COMPREHENSIVE METABOLIC [id number] 21:05:00 Test Item Value Reference Range Interpretation Comments SODIUM (test code = 142 mEq/L 135-145 N NA) POTASSIUM (test code 3.6 mEq/L 3.5-5.0 N = K) CHLORIDE (test code 106 mEq/L 100-115 N = CL) CARBON DIOXIDE (test 23 mEq/L 22-31 N code = CO2) ANION GAP (test code 16.60 10-20 N = GAP) GLUCOSE (test code = 109 mg/dL 65-110 N GLU) BLOOD UREA NITROGEN 8 mg/dL 7-18 N (test code = BUN) GLOMERULAR 79 ml/min >60 N The Glomerular FILTRATION RATE Filtration R ate is a (test code = GFR) calculated parameterbased on serum Creatinin e, patient age and sex. GFR valuesless than 60 mL/min/1.73 squ are meters are dev cative ofChronic Kidne y Disease. Values less than 15 mL/min/1.73squa re meters indicate Kidney failure. The calculation for GFR is based on the CK D-EPI (2020) calculat ion. This formulais race indifferent and is the recommended for sera for [facility]by [facility] for Ad[facility].The GFR will not calculate i f the sex is unknown or if thepatient's ag e is <18 years. CREATININE (test 1.0 mg/dL 0.5-1.0 N code = CREAT) TOTAL PROTEIN (test 5.7 gm/dL 6.3-8.2 L code = PROT) ALBUMIN (test code = 2.5 gm/dL 3.4-4.8 L ALB) CALCIUM (test code = 9.1 mg/dL 8.4-10.2 N CA) BILIRUBIN TOTAL 0.3 mg/dL 0.2-1.0 N (test code = BILT) SGOT/AST (test code 19 units/L 15-37 N = AST) SGPT/ALT (test code 11 units/L 12-78 L = ALT) ALKALINE PHOSPHATASE 139 units/L 46-116 H TOTAL (test code = ALKP) URIC [id number] 21:05:00 Test Item Value Reference Range Interpretation Comments URIC ACID (test code = URIC) 6.3 mg/dL 2.6-6.0 H UR PROTEIN/CREATININE [id number] 15:44:00 Test Item Value Reference Range Interpretation Comments UR PROTEIN RANDOM 21.2 mg/dL No referen ce range (test code = PROTU) availabl e UR CREATININE RANDOM 98.0 mg/dL No refe rence range (test code = CREATU) availab le PROTEIN/CREATININE 216.3 mg/gcrea <200 H RATIO (test code = P/CRATIO) CBC W/AUTO [id number] 14:21:00 Test Item Value Reference Range Interpretation Comments WHITE BLOOD CELL (test code = WBC) 6.4 K/mm3 6.5-12.3 L RED BLOOD CELL (test code = RBC) 3.31 M/mm3 3.51-4.69 L HEMOGLOBIN (test code = HGB) 10.6 g/dL 10.1-13.8 N HEMATOCRIT (test code = HCT) 31.5 % 32.5-41.8 L MEAN CELL VOLUME (test code = MCV) 95.2 fL 84.6-96.6 N MEAN CELL HGB (test code = MCH) 32.0 pg 27.3-33.9 N MEAN CELL HGB CONCETRATION (test 33.7 gm/dL 32.0-34.2 N code = MCHC) RED CELL DISTRIBUTION WIDTH (test 15.1 % 12.2-16.3 N code = RDW) PLATELET COUNT (test code = PLT) 128 K/mm3 134-363 L MEAN PLATELET VOLUME (test code = 9.7 fL 9.2-12.7 N MPV) NEUTROPHIL % (test code = NT%) 68.0 % 57.9-77.3 N LYMPHOCYTE % (test code = LY%) 24.7 % 14.5-29.7 N MONOCYTE % (test code = MO%) 6.5 % 3.6-10.2 N EOSINOPHIL % (test code = EO%) 0.0 % 0.0-3.0 N BASOPHIL % (test code = BA%) 0.3 % 0.1-0.9 N NEUTROPHIL # (test code = NT#) 4.4 K/mm3 LYMPHOCYTE # (test code = LY#) 1.6 K/mm3 MONOCYTE # (test code = MO#) 0.4 K/mm3 EOSINOPHIL # (test code = EO#) 0 K/mm3 BASOPHIL # (test code = BA#) 0.0 K/mm3 RBC MORPHOLOGY REQUIRED (test code NORMAL NORMAL = RBCM) PLATELET MORPHOLOGY REQUIRED (test NORMAL NORMAL code = PLTMR) pap, LB + HR [id number] 00:00:00 Test Item Value Reference Range Interpretation Comments Pap, liquid-based (test code = Pap, nilm nilm liquid-based) [facility] Medical[facility]lamydia trachomatis and Neisseria gonorrhoeae rRNA panel - Specimen by DAVID with probe [id number] 00:00:00 Test Item Value Reference Range Interpretation Comments aptima combo 2 swab (CT) (test code = CT neg negative aptima combo 2 swab (CT)) aptima combo 2 swab (GC) (test code = GC neg negative aptima combo 2 swab (GC)) [facility] [id number] 10:35:00 Test Item Value Reference Range Interpretation Comments POCT PREG (test code = 1605) negative On board controls acceptable with present C Line (test code = 3574) POCT PREG LOT # (test code = 3575) [id number] POCT PREG TEST DATE (test 11/16/2020 code = 3576) Lab Interpretation (test code = Normal 31594-9) [facility]
--- NOTE | 2023-03-05 07:38 | ER ---
Nurse's Notes [facility] Name: Anne Marie Matthews Age: 27 yrs Sex: Female : 1995 Arrival Date: 03/05/2023 Time: 07:03 Bed 15 Private MD: Diagnosis: mood disturbance Presentation: 03/05 07:32 Chief complaint: Four week , started Zoloft 4 days ago for hb depression, not feeling better, denies SI/HI. Coronavirus screen: At this time, the client does not indicate any symptoms associated with coronavirus-19. Ebola Screen: No symptoms or risks identified at this time. Initial Sepsis Screen: Does the patient meet any 2 criteria? No. Patient's initial sepsis screen is negative. Does the patient have a suspected source of infection? No. Patient's initial sepsis screen is negative. Risk Assessment: Do you want to hurt yourself or someone else? Patient reports no desire to harm self or others. Onset of symptoms was March 05, 2023. 07:32 Method Of Arrival: Ambulatory hb 07:32 Acuity: ROBB 3 hb Historical: - Allergies: 07:34 No Known Allergies; hb - Home Meds: 07:34 Zoloft 25 mg oral tablet daily [Active]; levothyroxine 200 mcg capsule [Active]; hb clonazepam 0.5 mg Oral tablet [Active]; - PMHx: 07:34 Anemia; hb - PSHx: 07:34 Tonsillectomy; Adenoid excision; D\T\C; hb - Immunization history:: Adult Immunizations up to date. - Social history:: Smoking status: Patient denies any tobacco usage or history of. - Family history:: not pertinent. - Hospitalizations: : No recent hospitalization is reported. Screenin:51 [facility] ED Fall Risk Assessment (Adult) History of falling in the last 3 months, db including since admission No falls in past 3 months (0 pts) Confusion or Disorientation No (0 pts) Intoxicated or Sedated No (0 pts) Impaired Gait No (0 pts) Mobility Assist Device Used No (0 pt) Altered Elimination No (0 pt) Score/Fall Risk Level 0 - 2 = Low Risk Oriented to surroundings, Maintained a safe environment. Abuse screen: Denies threats or abuse. Denies injuries from another. Nutritional screening: No deficits noted. Tuberculosis screening: No symptoms or risk factors identified. Assessment: 07:51 Reassessment: Patient appears in no apparent distress at this time. Patient and/or db family updated on plan of care and expected duration. Pain level reassessed. Patient is alert, oriented x 3, equal unlabored respirations, skin warm/dry/pink. General: Appears in no apparent distress. comfortable, Behavior is calm, cooperative. Pain: Denies pain. Neuro: Level of Consciousness is awake, alert, obeys commands, Oriented to person, place, time, situation, Speech is normal. Respiratory: Airway is patent Respiratory effort is even, unlabored, Respiratory pattern is regular, symmetrical. Vital Signs: 07:32 BP 122 / 96; Pulse 99; Resp 16; Temp 98.6; Pulse Ox 100% on R/A; Weight 92.99 kg; hb Height 5 ft. 3 in. ; Pain 0/10; 07:51 BP 109 / 91; Pulse 84; Resp 16; Pulse Ox 98% on R/A; db 07:32 Body Mass Index 36.31 (92.99 kg, 160.02 cm) hb 07:32 Pain Scale: Adult hb ED Course: 07:04 Patient arrived in ED. rg4 07:05 Carlos Manuel Isaac MD is Attending Physician. rn 07:34 Triage completed. hb 07:36 Arm band placed on. hb 07:51 Klarissa Gutierrez, RN is Primary Nurse. db 07:51 Patient has correct armband on for positive identification. Bed in low position. Call db light in reach. Side rails up X 1. Provided Education on: DISCHARGE. Pulse ox on. NIBP on. 07:51 No provider procedures requiring assistance completed. Patient did not have IV access db during this emergency room visit. Administered Medications: No medications were administered Medication: 07:51 VIS not applicable for this client. db Outcome: 07:37 Discharge ordered by . rn 07:51 Discharged to home ambulatory, with family, db 07:51 Condition: stable 07:51 Discharge instructions given to patient, Instructed on discharge instructions, follow up and referral plans. 07:53 Patient left the ED. db Signatures: Carlos Manuel Isaac MD MD rn Baxter, Heather RN Adrianna Warner rg4 Klarissa Gutierrez RN RN db
--- NOTE | 2023-03-05 07:38 | EDPHYS ---
Physician Documentation [facility] Name: Anne Marie Matthews Age: 27 yrs Sex: Female : 1995 Arrival Date: 03/05/2023 Time: 07:03 Bed 15 Private MD: ED Physician Carlos Manuel Isaac HPI: 03/05 07:33 This 27 yrs old Female presents to ER via Unassigned with complaints of Mental Health rn Andie. 07:33 The patient presents to the emergency department with depression. Onset: The rn symptoms/episode began/occurred 4 week(s) ago. Severity of symptoms: At their worst the symptoms were mild in the emergency department the symptoms are unchanged. The patient has experienced a previous episode. Patient reports 4 weeks , has had depression in the past, already saw her OB doctor who prescribed Zoloft, now on day 5. Denies suicidal or self-harm thoughts. Also denies any thoughts of harming baby or anyone else. Has been on Zoloft before without any adverse reactions.. Historical: - Allergies: 07:34 No Known Allergies; hb - Home Meds: 07:34 Zoloft 25 mg oral tablet daily [Active]; levothyroxine 200 mcg capsule [Active]; hb clonazepam 0.5 mg Oral tablet [Active]; - PMHx: 07:34 Anemia; hb - PSHx: 07:34 Tonsillectomy; Adenoid excision; D\T\C; hb - Immunization history:: Adult Immunizations up to date. - Social history:: Smoking status: Patient denies any tobacco usage or history of. - Family history:: not pertinent. - Hospitalizations: : No recent hospitalization is reported. ROS: 07:33 Constitutional: Negative for fever, chills, and weight loss, Cardiovascular: Negative rn for chest pain, palpitations, and edema, Respiratory: Negative for shortness of breath, cough, wheezing, and pleuritic chest pain, Abdomen/GI: Negative for abdominal pain, nausea, vomiting, diarrhea, and constipation, MS/Extremity: Negative for injury and deformity, Skin: Negative for injury, rash, and discoloration, Neuro: Negative for headache, weakness, numbness, tingling, and seizure, Psych: Positive for depression and anxiety, negative for suicidal ideation or homicidal ideation. No hallucinations Exam: 07:33 Constitutional: This is a well developed, well nourished patient who is awake, alert, rn and in no acute distress. Tearful Head/Face: Normocephalic, atraumatic. Neuro: Awake and alert, GCS 15 Psych: Awake, alert, with orientation to person, place and time. Polite behavior, tearful, but mood improves after discussion Vital Signs: 07:32 BP 122 / 96; Pulse 99; Resp 16; Temp 98.6; Pulse Ox 100% on R/A; Weight 92.99 kg; hb Height 5 ft. 3 in. ; Pain 0/10; 07:51 BP 109 / 91; Pulse 84; Resp 16; Pulse Ox 98% on R/A; db 07:32 Body Mass Index 36.31 (92.99 kg, 160.02 cm) hb 07:32 Pain Scale: Adult hb MDM: 07:05 Patient medically screened. rn 07:33 Differential diagnosis: depression, depression. Data reviewed: vital signs, rn nurses notes, and as a result, I will discharge patient. Counseling: I had a detailed discussion with the patient and/or guardian regarding the historical points, exam findings, and any diagnostic results supporting the discharge/admit diagnosis, the need for outpatient follow up, to return to the emergency department if symptoms worsen or persist or if there are any questions or concerns that arise at home. Special discussion: I discussed with the patient/guardian in detail that at this point there is no indication for admission to the hospital. It is understood, however, that if the symptoms persist or worsen the patient needs to return immediately for re-evaluation. Based on the history and exam findings, there is no indication for further emergent testing or inpatient evaluation. I discussed with the patient/guardian the need to see the OB Gyne specialist for further evaluation of the symptoms. I discussed with the patient/guardian the need to see the psychiatrist for further evaluation of the symptoms. ED course: Had long discussion with patient and . She denies any suicidal or harmful thoughts or intention, joint decision made that she does not require inpatient psychiatric admission or transfer at this time. Just recently started Zoloft and she has not had any adverse reactions, joint decision made to give it more time. Return precautions given and understood. states can take 2 weeks off starting now for support. Patient states that she was reading online about psychosis and the ultimate decision to come was that she was worried that depression return to psychosis. Does not have any history of psychosis. Denies any hallucinations. Joint decision between all 3 parties made that transferring her and inpatient psychiatric admission would not be ideal with 2 other children in a 4-week old at home. Told her that we are here for her and if anything worsens to come back.. Administered Medications: No medications were administered Disposition Summary: 03/05/23 07:37 Discharge Ordered Notes: Location: Home rn Problem: new rn Symptoms: have improved rn Condition: Stable rn Diagnosis - mood disturbance rn Followup: rn - With: Private Physician - When: As needed - Reason: Recheck today's complaints, Re-evaluation by your physician Discharge Instructions: - Discharge Summary Sheet rn - Baby Blues rn - Depression rn Forms: - Medication Reconciliation Form rn - Thank You Letter rn - Antibiotic transport rn - Prescription Opioid Use rn - Patient Portal Instructions rn - Leadership Thank You Letter rn Signatures: Carlos Manuel Isaac MD MD rn Baxter, Heather, RN RN Corrections: (The following items were deleted from the chart) 07:37 07:33 ED course: Had long discussion with patient and . She denies any suicidal rn or harmful thoughts or intention, joint decision made that she does not require inpatient psychiatric admission or transfer at this time. Just recently started Zoloft and she has not had any adverse reactions, joint decision made to give it more time. Return precautions given and understood. states can take 2 weeks off starting now for support. Patient states that she was reading online about psychosis and the ultimate decision to come was that she was worried that depression return to psychosis. Does not have any history of psychosis. Denies any hallucinations.. rn
[2023-03-05 07:58] VITALS: TEMP 98.6
[2023-03-05 07:59] VITALS: BP 109/91; O2SAT 98
== END 2023-03-05 07:53 | disposition home or self-care (01) ==
LOC: ER 07:03
DX: O90.6 Postpartum mood disturbance (principal)
CPT/HCPCS: 99283